=== PATIENT | male | born 1945 | race African-American/Black ===

== ENCOUNTER 2016-06-01 03:34 | Emergency (ER) | payer OTHER, MEDICARE ==
[2016-06-01] MEDS ORDERED: PREDNISONE 20 MG TABLET PO ONE (04:12)
[2016-06-01] MEDS ORDERED: IPRATROPIUM/ALBUTEROL 0.5-2.5 MG/3 ML AMPUL NEB ONE (04:12)
[2016-06-01] MEDS: ALBUTEROL SULFATE 0.083% NEB 2.5 MG/3 ML AMPUL NEB SCH ×2 (04:22→04:23)
[2016-06-01 05:30] LABS: ABSOLUTE BASOPHILS # (AUTO) 0.1 10^3/uL (0.0-0.2); ABSOLUTE LYMPHOCYTES (AUTO) 1.2 10^3/uL (0.5-4.7); ABSOLUTE MONOCYTES (AUTO) 0.7 10^3/uL (0.1-1.4); ABSOLUTE NEUT (AUTO) 7.6 10^3/uL (1.7-8.2); BASOPHILS % (AUTO) 0.8 % (0-2); EOSINOPHILS % (AUTO) 0.5 % (0-6); HEMATOCRIT 43.8 % (37.9-51.0); HEMOGLOBIN 14.3 g/dL (13.5-17.0); HGB HCT DIFFERENCE -0.9; LYMPHOCYTES % (AUTO) 12.1 % (13-45); MEAN CORPUSCULAR HEMOGLOBIN 27.3 pg (27.0-33.4); MEAN CORPUSCULAR HGB CONC 32.6 g/dL (32.0-36.0); MEAN CORPUSCULAR VOLUME 84 fl (80-97); MONOCYTES % (AUTO) 7.2 % (3-13); RED BLOOD COUNT 5.23 10^6/uL (4.35-5.55); RED CELL DISTRIBUTION WIDTH 14.5 % (11.5-14.0); SEGMENTED NEUTROPHILS % (AUTO) 79.4 % (42-78); WHITE BLOOD COUNT 9.5 10^3/uL (4.0-10.5)
[2016-06-01] MEDS ORDERED: FUROSEMIDE INJ/PF 40 MG/4 ML SDV IV ONE (06:32)
[2016-06-01 08:01] LABS: ALANINE AMINOTRANSFERASE 26 U/L (21-72); ALBUMIN 3.8 g/dL (3.5-5.0); ALKALINE PHOSPHATASE 91 U/L (38-126); ANION GAP 10 (5-19); ASPARTATE AMINO TRANSFERASE 21 U/L (17-59); BILIRUBIN,TOTAL 0.4 mg/dL (0.2-1.3); BLOOD UREA NITROGEN 13 mg/dL (7-20); CALCIUM 9.5 mg/dL (8.4-10.2); CARBON DIOXIDE 24 mmol/L (22-30); CHLORIDE 109 mmol/L (98-107); CREATINE KINASE 184 U/L (55-170); CREATININE RESULT 0.97 mg/dL (0.52-1.25); GLUCOSE 129 mg/dL (75-110); POTASSIUM 3.8 mmol/L (3.6-5.0); SODIUM 142.8 mmol/L (137-145); TOTAL PROTEIN 6.7 g/dL (6.3-8.2)
[2016-06-01 08:13] LABS: CREATINE KINASE MB 4.32 ng/mL (<4.55)
[2016-06-01 08:18] LABS: TROPONIN I 0.063 ng/mL
--- NOTE | 2016-06-01 09:42 | ER Document Report ---
ED General - General Chief Complaint: Shortness Of Breath Stated Complaint: SHORTNESS OF BREATH - HPI Patient complains to provider of: shortness of breath Notes: Patient with history COPD CHF coming in for shortness of breath ongoing for the last 4 days worse prior to arrival. Patient denies any fevers chills nausea vomiting diarrhea denies productive cough. Patient states she's not been compliant with his diet eating a lot of salt canned foods over the last few days. Patient states he has noticed mild weight gain unknown amount states he also noticed dyspnea on exertion. Patient otherwise upon my arrival resting comfortably stating he much improvement after the breathing treatments provided by EMS. - Related Data Allergies/Adverse Reactions: No Known Allergies Allergy (Unverified 05/12/12 01:24) Past Medical History - Social History Smoking Status: Current Some Day Smoker Family History: Reviewed & Not Pertinent, Other - Unable to obtain - Past Medical History Cardiac Medical History: Reports: Hx Coronary Artery Disease, Hx Heart Attack, Hx Hypercholesterolemia, Hx Hypertension Pulmonary Medical History: Reports: Hx COPD Denies: Hx Tuberculosis Psychiatric Medical History: Reports: Hx Post Traumatic Stress Disorder Past Surgical History: Reports: Hx Cardiac Surgery - stent in 2003, Hx Coronary Stent. Denies: Hx Pacemaker - Immunizations Hx Diphtheria, Pertussis, Tetanus Vaccination: Yes Hx Pneumococcal Vaccination: 04/15/07 Review of Systems - Review of Systems Constitutional: No symptoms reported EENT: No symptoms reported Cardiovascular: No symptoms reported Respiratory: Cough, Short of breath Gastrointestinal: No symptoms reported Genitourinary: No symptoms reported Male Genitourinary: No symptoms reported Musculoskeletal: No symptoms reported Skin: No symptoms reported Hematologic/Lymphatic: No symptoms reported Neurological/Psychological: No symptoms reported -: Yes All other systems reviewed and negative Physical Exam - Vital signs Vitals: Temp Pulse Resp Pulse Ox 97.5 F 77 22 H 88 L 06/01/16 03:44 06/01/16 03:44 06/01/16 03:44 06/01/16 03:44 Interpretation: Normal - General General appearance: Appears well, Alert - HEENT Head: Normocephalic, Atraumatic Eyes: Normal Pupils: PERRL - Respiratory Respiratory status: No respiratory distress Chest status: Nontender Breath sounds: Normal Chest palpation: Normal - Cardiovascular Rhythm: Regular Heart sounds: Normal auscultation Murmur: No - Abdominal Inspection: Normal Distension: No distension Bowel sounds: Normal Tenderness: Nontender Organomegaly: No organomegaly - Back Back: Normal, Nontender - Extremities General upper extremity: Normal inspection, Nontender, Normal color, Normal ROM , Normal temperature General lower extremity: Normal inspection, Nontender, Normal color, Normal ROM , Normal temperature, Normal weight bearing. No: Velia's sign - Neurological Neuro grossly intact: Yes Cognition: Normal Orientation: AAOx4 [place] Coma Scale Eye Opening: Spontaneous [place] Coma Scale Verbal: Oriented [place] Coma Scale Motor: Obeys Commands [place] Coma Scale Total: 15 Speech: Normal Motor strength normal: LUE, RUE, LLE, RLE Sensory: Normal - Psychological Associated symptoms: Normal affect, Normal mood - Skin Skin Temperature: Warm Skin Moisture: Dry Skin Color: Normal Course - Re-evaluation Re-evalutation: 06/01/16 15:03 Patient's chest x-ray shows mild failure. Patient's troponin and BNP are consistent with patient's failure pattern in the past however patient was given a dose of Lasix to diuresis been ambulated around the ER patient stated he Tolerated this well and requesting to be discharged home. More likely patient has a next history of COPD CHF. This time will increase to patient's Lasix dosing from once a day the twice a day. Patient was encouraged to control his diet. Patient also given albuterol inhaler for home. Patient is to follow-up with his primary care physician and possible customer support professional. Patient discharged patient agrees with plan - Vital Signs Vital signs: Temp Pulse Resp BP Pulse Ox 97.5 F 77 15 165/94 H 98 06/01/16 03:44 06/01/16 03:44 06/01/16 09:23 06/01/16 09:23 06/01/16 09:23 - Laboratory Result Diagrams: 06/01/16 05:15 06/01/16 07:29 Laboratory results interpreted by me: 06/01/16 06/01/16 06/01/16 05:15 07:29 07:29 RDW 14.5 H Seg Neutrophils % 79.4 H Lymphocytes % 12.1 L Chloride 109 H Glucose 129 H Creatine Kinase 184 H NT-Pro-B Natriuret Pep 2400 H Discharge - Discharge Clinical Impression: CHF (congestive heart failure) Qualifiers: Congestive heart failure type: unspecified congestive heart failure type Congestive heart failure chronicity: acute Qualified Code(s): I50.9 - Heart failure, unspecified COPD (chronic obstructive pulmonary disease) Qualifiers: COPD type: unspecified COPD Qualified Code(s): J44.9 - Chronic obstructive pulmonary disease, unspecified Condition: Good Disposition: HOME, SELF-CARE Instructions: Chronic Obstructive Lung Disease ([facility]), Congestive Heart Failure ([facility]) Additional Instructions: Please use the inhaler that we gave you here in ER 2 puffs every 4 hours for shortness of breath. He may continue Combivent as well as home. Please increase lasix 40mg twice a day for the next 2 days. Your symptoms are consistent with a slight COPD and CHF exacerbation. More likely CHF exacerbation related to being noncompliant with diet. Return to the ER symptoms worsen. Please follow-up with your primary care physician. Prescriptions: Furosemide [Lasix] 40 mg PO BID 2 Days Prednisone [Deltasone 20 mg Tablet] 2 tab PO DAILY 3 Days Forms: Return to Work Referrals: KATHLEEN COTTO MD [ACTIVE PROVISIONAL STAFF] - Follow up as needed JOSELITO TOMAS MD [ACTIVE STAFF] - Follow up as needed
[2016-06-01 09:56] VITALS: BP 165/94
[2016-06-01] MEDS ORDERED: ALBUTEROL SULFATE HFA (90 MCG/PUFF) 8 GM MDI (1 MDI/ER DISP) IH ONE (10:13)
--- NOTE | 2016-06-01 12:33 | EKG REPORT ---
SEVERITY:- ABNORMAL ECG - SINUS RHYTHM PROBABLE LEFT ATRIAL ABNORMALITY NONSPECIFIC IVCD WITH LAD LVH WITH SECONDARY REPOLARIZATION ABNORMALITY PROBABLE INFERIOR INFARCT, OLD : Confirmed by: Matt Cardoso 01-Jun-2016 12:32:28
== END 2016-06-01 09:57 | disposition home or self-care (01) ==
LOC: ER 03:34
DX: I11.0 Hypertensive heart disease with heart failure (principal); I50.9 Heart failure, unspecified; J44.9 Chronic obstructive pulmonary disease, unspecified; R05 Cough; R63.5 Abnormal weight gain; I25.10 Atherosclerotic heart disease of native coronary artery without angina pectoris; I25.2 Old myocardial infarction; Z98.61 Coronary angioplasty status; F17.200 Nicotine dependence, unspecified, uncomplicated; Z79.899 Other long term (current) drug therapy
CPT/HCPCS: 93005; 94640 ×2; 99285; 96374; 36415; 82553; 82550; 85025; 80053; 84484; 83880; 71010; 93010; J1940; J7512; J3490; J7620

== ENCOUNTER 2016-12-03 01:26 | Emergency (ER) | payer OTHER, MEDICARE ==
[2016-12-03] MEDS ORDERED: DEXTROSE 50%-WATER 25 GM/50 ML DISP.SYRIN IV ONE (01:46)
[2016-12-03] MEDS ORDERED: CALCIUM GLUCONATE 1000 MG/10 ML INJ IV ONE (01:46)
--- NOTE | 2016-12-03 01:48 | ER Document Report ---
ED General - General Stated Complaint: POST ARREST Time Seen by Provider: 12/03/16 01:42 Notes: Patient is a 71-year-old male who presents with PEA or cardiac arrest. According to paramedics the family said that he was wheezing and have a lot of difficulty breathing. He then went unresponsive. Paramedics arrived and started CPR. Prior to arrival to the ER he did regain spontaneous circulation but then went into cardiac arrest again prior to arrival to the ER. He received 9 rounds of epinephrine, 1 amp of bicarb, his Accu-Chek was 136, he was initially started on a lidocaine drip by paramedics, he was given 2 g of magnesium, he was intubated in the field, he remained in either wide complex rhythm with a pulse or PEA with a wide complex rhythm. He arrives to the ER with CPR in progress. - Related Data Allergies/Adverse Reactions: No Known Allergies Allergy (Unverified 05/12/12 01:24) Past Medical History - Social History Smoking Status: Current Every Day Smoker Frequency of alcohol use: None Drug Abuse: None Family History: Reviewed & Not Pertinent, Other - Unable to obtain - Past Medical History Cardiac Medical History: Reports: Hx Coronary Artery Disease, Hx Heart Attack, Hx Hypercholesterolemia, Hx Hypertension Pulmonary Medical History: Reports: Hx COPD Denies: Hx Tuberculosis Psychiatric Medical History: Reports: Hx Post Traumatic Stress Disorder Past Surgical History: Reports: Hx Cardiac Surgery - stent in 2003, Hx Coronary Stent. Denies: Hx Pacemaker - Immunizations Hx Diphtheria, Pertussis, Tetanus Vaccination: Yes Hx Pneumococcal Vaccination: 04/15/07 Physical Exam - Vital signs Vitals: Pulse Ox 98 12/03/16 01:40 Course - Re-evaluation Re-evalutation: 12/03/16 04:01 I have spoken with Dr. Mora, fast food cook at [facility], who agrees to accept the patient for transfer. Patient has slowly been weaned down on epi drip. He is now down to 15 mcg. His dopamine is at 20. His blood pressures been holding steady with that. His initial wide-complex arrhythmia has narrowed. I spoken to family informed them that he still is not showing much neurologic function other than a few breaths over the vent occasionally. He still has dilated pupils. I still informed him that I feel that his long- term outcome is unlikely to be good. They are understanding of this. Once we have the bed assignment and transport available we will transfer the patient. Dr. Mora did suggest cooling protocol; however, I do not want to start active cooling as of yet being that the patient is on 2 pressors due to hypotension which under most protocols is a contraindication to cooling. 12/03/16 06:30 Patient's blood pressures remained stable on the epi and dopamine drips. He has continued to have some bloody output from his OG tube. I therefore started him on a Protonix drip. Patient continues to be stable for transfer. Transport is scheduled to be here around 8:00 AM. Patient continues to not show any significant neurologic function except for occasionally taking some breaths on his own. Dictation of this chart was performed using voice recognition software; therefore, there may be some unintended grammatical errors. - Vital Signs Vital signs: Temp Pulse Resp BP Pulse Ox 98.7 F 100 17 108/74 97 12/03/16 05:58 12/03/16 05:45 12/03/16 05:58 12/03/16 05:58 12/03/16 05:30 - Laboratory Result Diagrams: 12/03/16 01:35 12/03/16 04:40 Laboratory results interpreted by me: 12/03/16 12/03/16 12/03/16 01:30 01:35 01:35 WBC 10.9 H RBC 4.33 L Hgb 12.0 L MCHC 30.6 L RDW 15.4 H Plt Count 77 L Seg Neutrophils % 38.9 L Lymphocytes % 54.5 H Absolute Lymphocytes 5.9 H PT 25.4 H ABG pH ABG pO2 ABG HCO3 ABG Total CO2 VBG pH VBG pCO2 VBG HCO3 Sodium Chloride Carbon Dioxide Anion Gap Creatinine Est GFR ( Amer) Est GFR (Non-Af Amer) Glucose POC Glucose 202 H Lactic Acid Direct Bilirubin AST Creatine Kinase CK-MB (CK-2) Total Protein Albumin 12/03/16 12/03/16 12/03/16 01:35 01:35 01:35 WBC RBC Hgb MCHC RDW Plt Count Seg Neutrophils % Lymphocytes % Absolute Lymphocytes PT ABG pH ABG pO2 ABG HCO3 ABG Total CO2 VBG pH 6.72 L* VBG pCO2 82.9 H* VBG HCO3 10.4 L Sodium 146.7 H Chloride 114 H Carbon Dioxide 7 L* Anion Gap 26 H Creatinine 1.59 H Est GFR ( Amer) 52 L Est GFR (Non-Af Amer) 43 L Glucose 266 H POC Glucose Lactic Acid Direct Bilirubin 0.5 H AST 66 H Creatine Kinase 628 H CK-MB (CK-2) 13.20 H Total Protein 5.1 L Albumin 2.7 L 12/03/16 12/03/16 12/03/16 04:35 04:40 04:40 WBC RBC Hgb MCHC RDW Plt Count Seg Neutrophils % Lymphocytes % Absolute Lymphocytes PT ABG pH ABG pO2 ABG HCO3 ABG Total CO2 VBG pH VBG pCO2 VBG HCO3 Sodium Chloride Carbon Dioxide Anion Gap Creatinine Est GFR ( Amer) Est GFR (Non-Af Amer) Glucose 420 H* POC Glucose > 550 H* Lactic Acid 9.6 H Direct Bilirubin AST Creatine Kinase CK-MB (CK-2) Total Protein Albumin 12/03/16 04:40 WBC RBC Hgb MCHC RDW Plt Count Seg Neutrophils % Lymphocytes % Absolute Lymphocytes PT ABG pH 7.16 L* ABG pO2 132.3 H ABG HCO3 15.0 L ABG Total CO2 16.3 L VBG pH VBG pCO2 VBG HCO3 Sodium Chloride Carbon Dioxide Anion Gap Creatinine Est GFR ( Amer) Est GFR (Non-Af Amer) Glucose POC Glucose Lactic Acid Direct Bilirubin AST Creatine Kinase CK-MB (CK-2) Total Protein Albumin - EKG Interpretation by Me Additional EKG results interpreted by me: 12/03/16 02:55 EKG #1 is reviewed and interpreted by me. EKG shows sinus tachycardia with rate of 103 bpm. Patient does have a wide complex tachycardia that appears consistent with a ablation for right bundle and left bundle branch block. [place] interval is within normal range. QRS duration and QTc intervals are prolonged. Patient does have some ST segment changes consistent with a bundle branch block. EKG #2 is reviewed and interpreted by me. EKG shows normal sinus rhythm with a rate of [address] segment elevation. Some ST segment depression in anterior precordial leads.. No ischemic T-wave inversions. [place] interval, QRS duration are within normal range. QTc interval is prolonged. Procedures - Central Line right internal jugular Consent obtained: No - emergent Central line pre-insertion: Chloraprep applied Central line lumen type: Triple Ultrasound guided: Yes CM at insertion site: 15 Line secured with sutures: Yes Central line post-insertion: Blood return from lumens, Biopatch applied, Sutured , Sterile dressing applied, Position confirmed w/ CXR Number of attempts: 1 Complications: No Critical Care Note - Critical Care Note Total time excluding time spent on procedures (mins): 50 Comments: Critical care time for the patient not including time spent on procedures is approximately 50 minutes due to frequent re-evaluations, management of pressors , management of that, discussion with family, and discussion with accepting physician.
[2016-12-03 01:50] LABS: ABSOLUTE BASOPHILS # (AUTO) 0.1 10^3/uL (0.0-0.2); ABSOLUTE EOSINOPHILS # (AUTO) 0.2 10^3/uL (0.0-0.6); ABSOLUTE LYMPHOCYTES (AUTO) 5.9 10^3/uL (0.5-4.7); ABSOLUTE MONOCYTES (AUTO) 0.4 10^3/uL (0.1-1.4); ABSOLUTE NEUT (AUTO) 4.2 10^3/uL (1.7-8.2); BASOPHILS % (AUTO) 0.7 % (0-2); EOSINOPHILS % (AUTO) 2.3 % (0-6); HEMATOCRIT 39.1 % (37.9-51.0); HGB HCT DIFFERENCE -3.1; LYMPHOCYTES % (AUTO) 54.5 % (13-45); MEAN CORPUSCULAR HEMOGLOBIN 27.6 pg (27.0-33.4); MEAN CORPUSCULAR HGB CONC 30.6 g/dL (32.0-36.0); MEAN CORPUSCULAR VOLUME 90 fl (80-97); MONOCYTES % (AUTO) 3.6 % (3-13); RED BLOOD COUNT 4.33 10^6/uL (4.35-5.55); RED CELL DISTRIBUTION WIDTH 15.4 % (11.5-14.0); SEGMENTED NEUTROPHILS % (AUTO) 38.9 % (42-78); VENOUS BLOOD BASE EXCESS -26.3 mmol/L; VENOUS BLOOD HCO3 10.4 mmol/L (20-32); WHITE BLOOD COUNT 10.9 10^3/uL (4.0-10.5)
[2016-12-03 01:52] LABS: VENOUS BLOOD PCO2 82.9 mmHg (35-63); VENOUS BLOOD PH 6.72 (7.30-7.42)
[2016-12-03 01:56] LABS: PROTHROMBIN TIME 25.4 SEC (11.4-15.4)
[2016-12-03] MEDS ORDERED: DOPAMINE HCL/DEXTROSE 5%-WATER 800 MG/250 ML RTUINJ IV PRN (01:56)
[2016-12-03] MEDS ORDERED: DEXTROSE 5%-WATER 1000 ML 1,000 ML with SODIUM BICARBONATE 150 MEQ IV PRN ×2 (01:56)
[2016-12-03] MEDS ORDERED: SODIUM BICARBONATE 8.4% INJ 50 MEQ/50 ML DISP.SYRIN ONE ×4 (02:01→15:20)
[2016-12-03 02:03] LABS: ALANINE AMINOTRANSFERASE 51 U/L (21-72); ALBUMIN 2.7 g/dL (3.5-5.0); ALKALINE PHOSPHATASE 67 U/L (38-126); ASPARTATE AMINO TRANSFERASE 66 U/L (17-59); BILIRUBIN,DIRECT 0.5 mg/dL (0.0-0.4); BILIRUBIN,TOTAL 0.6 mg/dL (0.2-1.3); BLOOD UREA NITROGEN 10 mg/dL (7-20); CALCIUM 9.5 mg/dL (8.4-10.2); CREATINE KINASE 628 U/L (55-170); CREATININE RESULT 1.59 mg/dL (0.52-1.25); GLUCOSE 266 mg/dL (75-110); POTASSIUM 4.4 mmol/L (3.6-5.0); TOTAL PROTEIN 5.1 g/dL (6.3-8.2)
--- NOTE | 2016-12-03 02:11 | RADIOLOGY REPORT (SQ) ---
EXAM DESCRIPTION: CHEST SINGLE VIEW COMPLETED DATE/TIME: 12/03/2016 1:51 am REASON FOR STUDY: post arrest COMPARISON: 06/01/2016. 09/10/2013. EXAM PARAMETERS: NUMBER OF VIEWS: One view. TECHNIQUE: Single frontal radiographic view of the chest acquired. RADIATION DOSE: NA LIMITATIONS: None. FINDINGS: LUNGS AND PLEURA: Moderate mixed airspace and interstitial opacity includes moderate patch iness of the right lower hemithorax. Moderate lung volume. Small blunting -effusion of the right co stophrenic angle. MEDIASTINUM AND HILAR STRUCTURES: No masses. Contour normal. HEART AND VASCULAR STRUCTURES: Moderate enlargement of the cardiac silhouette. BONES: No acute findings. HARDWARE: Adequate appearing endotracheal tube. OTHER: No other significant finding. IMPRESSION: Moderate CHF pattern. Differential diagnosis includes pulmonary edema. Endotracheal tu be. TECHNICAL DOCUMENTATION: JOB ID: [id number]
[2016-12-03 02:15] LABS: CREATINE KINASE MB 13.2 ng/mL (<4.55)
[2016-12-03 02:27] LABS: TROPONIN I 0.232 ng/mL
[2016-12-03 02:28] LABS: CHLORIDE 114 mmol/L (98-107); SODIUM 146.7 mmol/L (137-145)
[2016-12-03 02:30] LABS: ANION GAP 26 (5-19)
[2016-12-03 02:31] LABS: CARBON DIOXIDE 7 mmol/L (22-30)
--- NOTE | 2016-12-03 02:53 | RADIOLOGY REPORT (SQ) ---
EXAM DESCRIPTION: CHEST SINGLE VIEW COMPLETED DATE/TIME: 12/03/2016 2:36 am REASON FOR STUDY: post central line placement COMPARISON: 12/03/2016. EXAM PARAMETERS: NUMBER OF VIEWS: One view. TECHNIQUE: Single frontal radiographic view of the chest acquired. RADIATION DOSE: NA LIMITATIONS: None. FINDINGS: LUNGS AND PLEURA: Moderate-severe mixed airspace and interstitial opacity of both lungs. Moderate lung volume. MEDIASTINUM AND HILAR STRUCTURES: No masses. Contour normal. HEART AND VASCULAR STRUCTURES: Mild enlargement of the cardiac silhouette. BONES: No acute findings. HARDWARE: Adequate appearing endotracheal tube and right internal jugular central line. OTHER: No other significant finding. IMPRESSION: Worsened mixed airspace and interstitial opacities. Lines and tubes. TECHNICAL DOCUMENTATION: JOB ID: [id number]
[2016-12-03 05:14] LABS: ARTERIAL BLOOD BASE EXCESS -13.3 mmol/L; ARTERIAL BLOOD O2 SATURATION 97.8 % (94-98)
[2016-12-03] MEDS ORDERED: PANTOPRAZOLE SODIUM 40 MG VIAL IV ONE (06:29)
[2016-12-03] MEDS ORDERED: PANTOPRAZOLE SODIUM 40 MG VIAL IV PRN (06:29)
[2016-12-03] MEDS ORDERED: EPINEPHRINE INJ 1 MG/10 ML DISP.SYRIN ONE ×4 (07:52→15:20)
[2016-12-03 08:04] VITALS: BP 92/71
--- NOTE | 2016-12-03 08:35 | EKG REPORT ---
SEVERITY:- ABNORMAL ECG - SINUS RHYTHM NONSPECIFIC IVCD WITH LAD LVH WITH SECONDARY REPOLARIZATION ABNORMALITY INFERIOR INFARCT, AGE INDETERMINATE : Confirmed by: Matt Cardoso 03-Dec-2016 08:34:51
--- NOTE | 2016-12-03 08:37 | EKG REPORT ---
SEVERITY:- ABNORMAL ECG - SINUS TACHYCARDIA PROBABLE LEFT ATRIAL ABNORMALITY RIGHT BUNDLE BRANCH BLOCK ST DEPRESSION, SEC TO BBBB VS ISCHEMIA, : Confirmed by: Matt Cardoso 03-Dec-2016 08:36:21
[2016-12-03] MEDS ORDERED: PHENYLEPHRINE HCL INJ/PF 10 MG/1 ML SDV ONE (08:52)
[2016-12-03 10:00] LABS: HEMATOCRIT 40.1 % (37.9-51.0); HEMOGLOBIN 12.7 g/dL (13.5-17.0); MEAN CORPUSCULAR HEMOGLOBIN 26.8 pg (27.0-33.4); MEAN CORPUSCULAR HGB CONC 31.6 g/dL (32.0-36.0); RED BLOOD COUNT 4.72 10^6/uL (4.35-5.55); RED CELL DISTRIBUTION WIDTH 14.9 % (11.5-14.0)
--- NOTE | 2016-12-03 10:10 | ER Document Report ---
Doctor's Note Notes: 12/03/16 10:08 [facility] transport arrived take the patient. He was quite hypotensive despite epinephrine drip, dopamine drip, bicarb drip. They remained here trying to adjust medications for about an hour before deciding to transport the patient. The patient is being transported at the family request, despite them being made aware much earlier this morning of the patient's dismal prognosis.
[2016-12-03 10:11] LABS: BASOPHILS % (MANUAL) 0 % (0-2); EOSINOPHILS % (MANUAL) 3 % (0-6); LYMPHOCYTES % (MANUAL) 14 % (13-45); TOTAL CELLS COUNTED 100
[2016-12-03 10:13] LABS: HYPOCHROMASIA SLIGHT; OVALOCYTES SLIGHT; POLYCHROMASIA SLIGHT; TOXIC GRANULATION SLIGHT; TOXIC VACUOLATION PRESENT
[2016-12-03 10:23] LABS: MEAN CORPUSCULAR VOLUME 85 fl (80-97)
[2016-12-03 10:24] LABS: WHITE BLOOD COUNT 25.2 10^3/uL (4.0-10.5)
== END 2016-12-03 09:25 | disposition short-term general hospital (02) ==
LOC: ER 01:26
PROC: 05HM33Z Insertion of Infusion Device into Right Internal Jugular Vein, Percutaneous Approach (ICD-10-PCS; principal; 2016-12-03)
PROC: B543ZZA Ultrasonography of Right Jugular Veins, Guidance (ICD-10-PCS; 2016-12-03)
DX: I46.9 Cardiac arrest, cause unspecified (principal); F17.200 Nicotine dependence, unspecified, uncomplicated; I95.9 Hypotension, unspecified; E87.2 Acidosis; I25.10 Atherosclerotic heart disease of native coronary artery without angina pectoris; I25.2 Old myocardial infarction; E78.00 Pure hypercholesterolemia, unspecified; I10 Essential (primary) hypertension; F43.10 Post-traumatic stress disorder, unspecified
CPT/HCPCS: 36556; 93005; 96376; 99291; 96365; 96366; 96368; 36415; 82553; 82962; 82803 ×2; 82550; 82947; 83605; 85025; 85610; 80053; 84484; 71010; 93010; J1265; J0171; S0164; J3490; 94002